=== PATIENT | female | born 1940 | race Caucasian/White ===

== ENCOUNTER → 2017-10-09 | Outpatient (CLI) | payer OTHER ==
[~2017-10-09] MED LIST: ALBU8.5H8 IH; ASPI-1182 PO; BUDE10.22 IH; CIP250 PO; DOCU100C34 PO; ESCI10TA54 PO; FISH1CAP8 PO; GEMF600T3 PO; HYDR-3965 PO; IBUP-2070 PO; METF500T4 PO; MOME17N NASAL; MONT10TA21 PO; VITAD1000 PO
== END | disposition home or self-care (01) ==
LOC: RADPV 08:28
PROVIDERS: ATTEND Family Medicine
DX: M43.16 Spondylolisthesis, lumbar region (principal); M43.17 Spondylolisthesis, lumbosacral region; M25.78 Osteophyte, vertebrae; M53.86 Other specified dorsopathies, lumbar region; M16.11 Unilateral primary osteoarthritis, right hip; M47.816 Spondylosis without myelopathy or radiculopathy, lumbar region
CPT/HCPCS: 72100; 73502

== ENCOUNTER 2017-10-10 15:25 | Emergency (ER) | payer MEDICARE, OTHER ==
[~2017-10-10] VITALS: Ht 154.9 cm; Wt 71.5 kg
[~2017-10-10 15:25] MED LIST changes: -CIP250 PO
[2017-10-10] MEDS ORDERED: CIP250 PO (16:29)
[2017-10-10 16:32] LABS: GLUCOSE,POINT OF CARE 156 MG/DL (70-110)
[2017-10-10 20:29] LABS: APPEARANCE,URINE CLOUDY (CLEAR); BILIRUBIN,URINE NEGATIVE (NEGATIVE); GLUCOSE, URINE (UA) NEGATIVE (NEGATIVE); KETONES,URINE NEGATIVE (NEGATIVE); LEUKOCYTE ESTERASE ,URINE SMALL (NEGATIVE); NITRATE,URINE NEGATIVE (NEGATIVE); OCCULT BLOOD,URINE TRACE (NEGATIVE); PH,URINE 5.5 (5.0-8.0); PROTEIN,URINE NEGATIVE (NEGATIVE); UROBILINOGEN,URINE 0.2 mg/dL (<=1.0)
[2017-10-10 20:38] LABS: BACTERIA,URINE Many /HPF (None Seen); RBC,URINE 0-2 /HPF (0-2); SQUAMOUS EPITHELIAL CELL,UR Moderate /LPF (None Seen)
[2017-10-10 21:15] VITALS: BP 170/77
[2017-10-10] MEDS ORDERED: KETOROLAC TROMETHAMINE 10 MG TABLET PO ONE (21:15)
== END 2017-10-10 21:30 | disposition home or self-care (01) ==
LOC: EMS 15:26
DX: N39.0 Urinary tract infection, site not specified (principal); J44.9 Chronic obstructive pulmonary disease, unspecified; E11.9 Type 2 diabetes mellitus without complications; F17.210 Nicotine dependence, cigarettes, uncomplicated; Z79.82 Long term (current) use of aspirin
CPT/HCPCS: 72100; 82962; 87086; 99285